=== PATIENT | male | born 1970 | race Caucasian/White ===

== ENCOUNTER 2016-08-04 12:08 | Day surgery (SDC) | payer BC, OTHER ==
[2016-08-04] MEDS ORDERED: FAMOTIDINE 20 MG TAB PO ONE (12:20)
[2016-08-04] MEDS ORDERED: diphenhydrAMINE 25 MG CAP PO ONE ×2 (12:20→12:40)
[2016-08-04] MEDS ORDERED: NS 1,000 ML IV ONE (12:20)
[2016-08-04] MEDS ORDERED: DIAZEPAM 5 MG TAB PO ONE (12:20)
[2016-08-04] MEDS ORDERED: ASPIRIN EC 325 MG TAB PO ONE ×2 (12:20→12:41)
--- NOTE | 2016-08-04 12:35 | CPEKG ---
Heart Rate: 65 RR Interval: 923 P-R Interval: 196 QRSD Interval: 92 QT Interval: 404 QTC Interval: 421 P [place]: 33 QRS [place]: -38 T Wave [place]: -1 EKG Severity - ABNORMAL ECG - EKG Impression: SINUS RHYTHM EKG Impression: PROBABLE INFERIOR INFARCT, AGE INDETERMINATE Electronically Signed By: Rodrigo Hernandez 05-Aug-2016 08:41:39
[2016-08-04] MEDS ORDERED: FAMOTIDINE 20 MG TAB ONE (12:40)
[2016-08-04] MEDS ORDERED: DIAZEPAM 5 MG TAB ONE (12:41)
[2016-08-04 13:01] LABS: % IMMATURE GRANULYOCYTES 0.4 % (0.0-1.1); ABSOLUTE IMMATURE GRANULOCYTES 0.03 10^3/uL (0.00-0.10); ADD DIFF? NO; ADD MORPH? NO; ADD SCAN? NO; ATYPICAL LYMPHOCYTE FLAG 20 (0-99); FRAGMENT RBC FLAG 0 (0-99); HEMATOCRIT 47.7 % (40.0-51.0); HEMOGLOBIN 17.3 g/dL (13.7-17.5); LEFT SHIFT FLG 0 (0-99); LIPEMIA HEMOLYSIS FLAG 90 (0-99); MEAN CELL HEMOGLOBIN 33.3 pg (27.9-34.1); MEAN CELL HEMOGLOBIN CONCENTR. 36.3 g/dL (32.4-36.7); MEAN CELL VOLUME 91.7 fL (81.5-99.8); MEAN PLATELET VOLUME 10.1 fL (8.7-11.7); PLATELET CLUMPS FLAG 0 (0-99); PLATELET COUNT 239 10^3/uL (150-400); RED CELL DISTRIBUTION WIDTH 12.4 % (11.5-15.2)
[2016-08-04 13:17] LABS: INR 1.08 (0.83-1.16); PROTIME(PATIENT) 13.9 SEC (12.0-15.0)
[2016-08-04] MEDS ORDERED: VERAPAMIL 5 MG/2 ML VIAL ONE (13:44)
[2016-08-04] MEDS ORDERED: HEPARIN 10,000 UNIT/10 ML MDV ONE (13:44)
[2016-08-04 13:52] LABS: ANION GAP 15 mEq/L (8-16); CALCIUM 9.8 mg/dL (8.5-10.4); CARBON DIOXIDE 23 mEq/l (22-31); CHLORIDE 104 mEq/L (97-110); CHOLESTEROL 145 mg/dL (140-200); CHOLESTEROL/HDL RATIO 3.54 RATIO (1.00-4.97); GLOMERULAR FILTRATION RATE > 60; GLUCOSE 88 mg/dL (70-100); HIGH DENSITY LIPOPROTEIN 41 mg/dL (40-65); LDL/HDL RATIO 2.24 RATIO (1.00-3.64); LOW DENSITY LIPOPROTEIN 92 mg/dL (70-100); MAGNESIUM 2.2 mg/dL (1.6-2.3); NON-HIGH DENSITY LIPOPROTEIN 104 mg/dL (90-129); POTASSIUM 4.4 mEq/L (3.5-5.2); SODIUM 142 mEq/L (134-144); TRIGLYCERIDE 60 mg/dL (40-150); VERY LOW DENSITY LIPOPROTEINS 12 mg/dL (8-25)
[2016-08-04] MEDS ORDERED: LIDOCAINE 1% 30 ML SDV ONE (14:05)
[2016-08-04] MEDS ORDERED: MIDAZOLAM 2 MG/2 ML VIAL ONE (14:06)
[2016-08-04] MEDS ORDERED: IOPAMIDOL (ISOVUE-370) 150 ML BTL IV ONE ×2 (14:06→14:22)
[2016-08-04] MEDS ORDERED: fentaNYL 100 MCG/2 ML INJ ONE (14:06)
--- NOTE | 2016-08-04 14:33 | PDDXCAT ---
Diagnostic Cath Note - . Date: 08/04/16 Intervention: None *Procedure 1. selective coronary angiography 2. left heart catheterization 3. left ventriculogram 4. thoracic aortogram Indication: Progressive dyspnea on exertion, strong family history of premature coronary artery disease/ cardiac events, newly identified coronary artery disease on the basis of a positive calcium score placing him between the 50th and 75th percentile when indexed for age and sex. Access: Right radial artery (a plethysmography trace assisted Rafal's Test was used to document dual artery supply to the hand and index finger prior to access ). *Materials Left Heart Cath size: 5F Left Heart Cath materials: JL3.5, JR4.0, Pigtail *Findings-Selective Coronary Angiography LM: The left main is short, ~5 mm in size and bifurcates into an LAD and circumflex system. There is no evidence of flow-limiting disease. LAD: The proximal LAD is ~5 mm in size. There are luminal irregularities throughout consistent with atherosclerosis (maximal luminal stenosis of 15% in the proximal LAD). There are diffuse luminal irregularities along the proximal 30-40 mm of the vessel, which are eccentric plaques. There are abnormal flow characteristics in the proximal LAD. PANKAJ III flow throughout. LCX: The proximal left circumflex is ~3 mm in size. There is no significant plaque or flow-limiting disease identified with PANKAJ III flow throughout. RCA: The right coronary artery is large, ~6.5 mm in size and dominant (gives rise to PDA and PLV branches). There is no evidence of flow-limiting disease with PANKAJ III flow throughout. *Findings-Left Heart Catheterization EDP: 17 mmHg LVEF: >65% AO: 113/66/89 mmHg LVG: There is normal systolic function without segmental wall motion abnormalities. There are three sinuses of Valsalva consistent with a trileaflet aortic valve. The thoracic root appears to be enlarged with no evidence of melanie dissection. The sinuses of Valsalva appear to be prominent and it is unclear if they are frankly aneurysmal. The thoracic aorta appears to be dilated. *Summary Complications: None Estimated blood loss: <50ml Closure method: TR Band Assessment/Conclusion: 1. Non-flow limiting coronary artery disease with maximal luminal stenosis of 15 % in the proximal LAD. There were luminal irregularities in the LAD system consistent with atherosclerosis and abnormal flow-characteristics related to sudden tapering of the proximal to mid-distal LAD. The patient is at increased risk of acute coronary sydrome with sudden proximal LAD plaque rupture and thrombosis. Intervention was not warranted at the present time. The patient's coronary artery disease should be managed medically to prevent the progression of plaque formation, inflammation and progression. 2. Normal left ventricular systolic function and ejection fraction estimated to be 65%. There are no segmental wall motion abnormalities identified on left ventriculogram. 3. Thoracic aorta and sinus of Valsalva enlargement that may be consistent with aneurysm. I have ordered an echocardiogram to examine the size of the sinus of Valsalva. If it is enlarged, the patient should have thoracic aortogram with 3D reconstruction to rule out sinus of Valsalva aneurysm and examine the size of the thoracic aorta.
--- NOTE | 2016-08-04 18:38 | ECHO ---
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 : + --+ MMode/2D Measurements \T\ Calculations IVSd: 1.1 cm RVDd: 3.9 cm FS: 35.7 % Ao root diam: LVPWd: 0.93 cm LVIDd: 5.0 cm EDV(Teich): 3.8 cm LVIDs: 3.2 cm 115.6 ml LA dimension: ESV(Teich): 3.7 cm 40.4 ml EF(Teich): 65.0 % LVLd ap4: 8.6 cm SV(MOD-sp4): EDV(MOD-sp4): 116.0 ml 169.0 ml LVLs ap4: 7.1 cm ESV(MOD-sp4): 53.0 ml EF(MOD-sp4): 68.6 % Normal Measurement Values: + + :LVIDd (3.5-5.7cm) IVSd (0.6-1.1cm) LVPWd (0.6-1.1cm) Aortic Root (2.0-3.7cm)Left Atrium (1.5-4.0cm): :LV Vol(d) (76-115ml) LV Vol(s) (29-48ml) Ejec Fraction (50-65%)PV Martin (0.6- 1.2m/s) TV Martin (0.4-1.0m/s) : :MV E Martin (0.8-1.0m/s)MV A Martin (0.3-1.0m/s)LVOT Martin (0.7-1.2m/s) Asc Ao Martin ( 0.9-1.8m/s) : + + Doppler Measurements \T\ Calculations MV E max martin: Ao V2 max: LV V1 max: PA V2 max: 58.2 cm/sec 127.7 cm/sec 85.4 cm/sec 88.2 cm/sec MV A max martin: Ao max P.5 mmHgLV V1 max PG: PA max P.3 cm/sec 2.9 mmHg 3.1 mmHg MV E/A: 1.1 MV dec time: 0.25 sec TR max martin: 207.7 cm/sec TR max P.3 mmHg RAP systole: 10.0 mmHg RVSP(TR): 27.3 mmHg Left Ventricle The left ventricle is normal in size and function. There is normal left ventricular wall thickness. Ejection Fraction = 65-70%. No regional wall motion abnormalities noted. Right Ventricle The right ventricle is normal in size and function. Atria The left atrial size is normal. Right atrial size is normal. Mitral Valve The mitral valve is normal in structure and function. There is no mitral valve stenosis. There is trace mitral regurgitation. Tricuspid Valve The tricuspid valve is normal in structure and function. There is no tricuspid stenosis. There is trace to mild tricuspid regurgitation. Right ventricular systolic pressure is 27mmHg. Aortic Valve The aortic valve is trileaflet. There is no aortic stenosis. There is no aortic insufficiency. Pulmonic Valve The pulmonic valve is normal in structure and function. Trace pulmonic valvular regurgitation. Great Vessels The aortic root is normal size. Dilated sinus of valsalva 4.0cm2. Normal ascending aorta size. Conclusion A two-dimensional transthoracic echocardiogram with M-mode and Doppler was performed. The left ventricle is normal in size and function. Ejection Fraction = 65-70%. There is trace mitral regurgitation. There is trace to mild tricuspid regurgitation. Right ventricular systolic pressure is 27mmHg. Trace pulmonic valvular regurgitation. The sinus of valsalva is the upper limits of normal in size and measured 4.0cm2. Normal ascending aorta size. Recommend repeat echo in 3-5 years to track the size of the sinus of valsalva. Results of the study and these recommendations, including the risk of developing a true sinus of valsalva aneurysm were communicated directly to the patient at 6:35PM by fl. Final Reading Physician: Akshat Engel signed on 08/04/2016 06:36 PM Ordering Physician: Kaiden Valencia Performed By: Batsheva Fischer
== END 2016-08-04 18:45 | disposition home or self-care (01) ==
LOC: FCATH 12:08
PROVIDERS: ATTEND Internal Medicine Cardiovascular Disease
DX: I25.10 Atherosclerotic heart disease of native coronary artery without angina pectoris (principal); I77.810 Thoracic aortic ectasia; R94.31 Abnormal electrocardiogram [ECG] [EKG]; R06.09 Other forms of dyspnea; R53.83 Other fatigue; Z82.49 Family history of ischemic heart disease and other diseases of the circulatory system; E78.5 Hyperlipidemia, unspecified
CPT/HCPCS: 93005; 93306; 93458; 93567; C1769; J1644; J2250; J3010; Q9967